=== PATIENT | female | born 1955 | race Caucasian/White ===

== ENCOUNTER 2022-12-23 09:30 | Outpatient (RCR) | payer MEDICARE, SELFPAY ==
--- NOTE | 2022-12-18 08:19 | HP.OTEVAL ---
Patient's Visit Information SUZY MANRIQUEZ is a 67 year old F, referred to Occupational Therapy by Rowdy Victoria PA-C, with a diagnosis of right unilateral primary OA of CMCJ. Date of Evaluation: 12/17/22 Occupational Therapist: Ivon Muller, FUAD/Dwight, CHT - Subjective This 67 year old female was seen for OT eval with dx with CMC. pt is right handed. 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 pt states she does like to read and will hold books until her thumb hurts. Pt states she has had x rays and she is bone on bone- Dr. would like to see if OT can make supportive custom orthosis to protect thumb and decrease pain. - Pain right hand 2 Pain Intensity Range: 5 - ROM Wrist: right 65/45 left 65/65 CMC: right 5 left 20 MP: right 40 left 60 IP: right 50 left 55 Radial Abduction: right 30 left 40 Opposition: Kapandji opposition scale right 5 left 10 ROM Comments: pt demo with hyper ext at MPJ bilaterally. 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 with ADLS by D/C. Goal:: pt will report pain no greater than 1/10 with use of orthosis by d/c Goal:: Pt will demo understanding of joint protection and ergonomics when performing BADLs and IADLs by d/c. Pt will demo understanding of adaptive Equipment use to decrease stress on joints to allow pt to perform BADSL and IADLS at EN level. Goal:: Pt will demo understanding of using supportive bracing 80% of workday/ADLS to decrease stress on tendon origin to allow healing and decrease pain by end of 2nd session. - Rehabilitation General Assessment: pt demo with painful right CMCJ due to OA deformity and causing instability. pt demo need skilled OT services 3-4 visits for custom orthosis fabrication to provide protection and support to CMCJ. Therapist ed. pt on some off the shelf CMC bracing with MP included, Joint protection sandra. and use of heat/ice depending on what feels better for her. Therapist will submit for approval for OT services and orthosis jarrell. once approved will bring pt in for orthosis jarrell. pt demo understanding and agrees to POC. Rehabilitation Potential: Good - Anticipated Interventions A/AAROM/PROM, Triggerpoint Release, Modalities, Orthoses, Fine Motor Coord/Manpreet, Home Program - Visit Plan Frequency: 1x/Week Duration: 2-4 Weeks General Plan: orthosis jarrell. custom. thumb stabilization. joint protection. Ad. eq. modalities as needed TEXT: Thank you for the opportunity to evaluate your patient. For Medicare and Medicare HMO plans, please review the plan of care and approve it. It will need to be FAXED BACK to us at [phone] for Medicare purposes. Please let me know if there are questions or concerns regarding this plan of care. Physician Signature: Date:
--- NOTE | 2023-04-09 09:50 | HP.OT.NRP ---
Patient Information Patient Information: SUZY MANRIQUEZ was seen in my office for initial evaluation on 12/17/22. The following Plan of Care was established for this patient: POC Established Initial Frequency: 1x/Week Initial Duration: 2-4 Weeks Anticipated Interventions Anticipated Interventions: A/AAROM/PROM, Triggerpoint Release, Modalities, Orthoses, Fine Motor Coord/Manpreet and Home Program Last Seen Last Seen: This patient was last seen in our office 12/23/22. Pertinent comments regarding their Occupational therapy will appear below: pt was seen for 2 OT session for Joint protection sandra. along with ed. on dx. At this time pt has not scheduled further apts and is d/c at this time. At this point I will be discontinuing this patient from occupational therapy. I would be happy to see this patient again in the future if found appropriate by the physician. Thank you! Ivon Muller, OTR/L, CHT
== END 2022-12-23 19:00 | disposition home or self-care (01) ==
LOC: OT 09:30
PROVIDERS: Referring Provider Physician Assistant Surgical; Visit Provider Physician Assistant Surgical
DX: M18.11 Unilateral primary osteoarthritis of first carpometacarpal joint, right hand (principal)
CPT/HCPCS: 97166; 97530

== ENCOUNTER → 2024-03-16 | Outpatient (CLI) | payer MEDICARE, SELFPAY ==
--- NOTE | 2024-03-16 | BRBX_PTH ---
PATIENT: SUZY MANRIQUEZ LOC: [facility] U#:[id number] AGE/SX: 68/F ROOM: RE03/16/[address]: Dr. Paola Castellanos MD : 1955 BED: DIS: 03/16/2024 SPEC #: [id number] RECD: 03/16/24 16:16 STATUS: ED CHI #: [id number] LALA: 03/16/24 00:[address]: Paola Castellanos DEPT: SURGICAL PATHOLOGY RECD BY: Adelaida Stewart ENTERED: 03/17/24 09:14 SP TYPE: BREAST BX OTHR DR: No Primary Care Phys Tissues: Right breast, NOS Procedures: Surgery Specimen Level IV HEADER OPERATION: Right breast biopsy PRE-OP DIAGNOSIS: Right breast TISSUE SUBMITTED: Right breast tissue, 3o'clock, 1.0cm from the nipple MICROSCOPIC DIAGNOSIS Right breast, 3 o'clock, 1.0cm from the nipple, core biopsy: Hyalinized fibroadenoma. Negative for atypia or malignancy. See comment. / 03/20/2024 COMMENT Correlation with clinical, radiologic findings and appropriate follow up are necessary. MICROSCOPIC DESCRIPTION Slides are reviewed. GROSS DESCRIPTION Received in fixative is one container labeled with the patient's name and designated Right breast. The specimen consists of multiple elongated fragments of sahu-yellow fibroadipose tissue that in aggregate measure 1.0 x 0.5 x 0.1 cm. The specimen is totally submitted in one cassette. YAYO/ 03/17/2024 TC:1 CPT:33499
== END | disposition home or self-care (01) ==
LOC: LABSPEC 16:15
PROVIDERS: Referring Provider Surgery; Visit Provider Surgery
DX: N64.9 Disorder of breast, unspecified (principal)
CPT/HCPCS: 88305

== ENCOUNTER 2024-10-10 12:14 | Outpatient (CLI) | payer MEDICARE, SELFPAY ==
--- NOTE | 2024-10-10 12:25 | US_ITS ---
EXAM: US BREAST BIOPSY 1ST LESION CLINICAL HISTORY: Abnormal mammogram. COMPARISON: None. TECHNIQUE: Under direct sonographic guidance, the surgeon performed core biopsies of a 6 mm x 6 mm x 4 mm hypoechoic nodule at the 10 o'clock position of the breast at 3 cm from the nipple. FINDINGS: Successful ultrasound-guided core biopsies of a 6 mm x 6 mm x 4 mm hypoechoic nodule at the 10 o'clock patient's breasts at 3 cm from the nipple. US/US Breast Biopsy 1st Lesion IMPRESSION: Successful ultrasound-guided breast biopsy. Reading Location: [facility]
--- NOTE | 2024-10-10 13:00 | BRBX_PTH ---
PATIENT: SUZY MANRIQUEZ LOC: [facility] U#:[id number] AGE/SX: 69/F ROOM: RE10/10/[address]: Dr. Paola Castellanos MD : 1955 BED: DIS: 10/10/2024 SPEC #: [id number] RECD: 10/10/24 13:26 STATUS: ED REEnriqueta #: [id number] LALA: 10/10/24 13:[address]: Paola Castellanos DEPT: SURGICAL PATHOLOGY RECD BY: Gill Pathak ENTERED: 10/11/24 08:42 SP TYPE: BREAST BX OTHR DR: Dr. Nahid Harris MD Tissues: Right breast, NOS Procedures: Surgery Specimen Level IV HEADER OPERATION: Right breast biopsy PRE-OP DIAGNOSIS: BIARD 4a TISSUE SUBMITTED: Right breast 10o'clock, 3cm from nipple Ischemic Time: 1 minute Fixation Time: 31 hours MICROSCOPIC DIAGNOSIS Right breast, 10o'clock, 3cm from nipple, core biopsy: Hyalinized fibroadenoma with focal fibrocystic changes. Negative for atypia or malignancy. See comment. 10/12/2024 COMMENT The specimen predominantly consists of blood clots. Correlation with clinical, radiologic findings and appropriate follow up are necessary. Please also make reference to previous specimen [id number], right breast, 3 o'clock, 1.0 cm from the nipple with diagnosis of hyalinized fibroadenoma. MICROSCOPIC DESCRIPTION Slides are reviewed. GROSS DESCRIPTION Received in fixative is one container labeled with the patient's name and designated Right breast. The specimen consists of multiple irregular fragments of blood clots mixed with a few fragments of sahu-yellow fibroadipose tissue that in aggregate measure 5 x 3 x 0.2 cm. The specimen is totally submitted in two cassettes. 10/11/2024 TC:1 CPT:21639
--- NOTE | 2024-10-10 13:29 | PCM.OPRPT ---
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 Risk benefits were discussed the patient and she elected to proceed with ultrasound guided core biopsy with clip placement Description of procedure: Patient was brought into the ultrasound room in the right breast was marked. A timeout was completed verifying correct patient, procedure, site, specially, prior to beginning procedure. The right breast was prepped and draped in usual sterile fashion and using local anesthesia was obtained with 1% lidocaine with epi. The lesion was located with the ultrasound. Small incision was made with 11 blade to introduced the mammotome through the skin. Under ultrasound guidance multiple core samples were obtained using then 13-gauge mammotome and sent in formalin for pathology. The BARD MaxCore dual ultraribbon clip was then deployed into the biopsy cavity under ultrasound guidance and a picture was taken. Upon completion procedure hemostasis was obtained and a Steri-Strip and OpSite were placed. Patient was then taken to the mammography suite for clip verification. The clip was verified. The patient tolerated the procedure well and was discharged from the breast imaging department good condition. Surgical Findings: See operative report Complications Complications: No
== END 2024-10-10 23:59 | disposition home or self-care (01) ==
PROVIDERS: PCP Internal Medicine; Referring Provider Surgery; Visit Provider Surgery
DX: N60.21 Fibroadenosis of right breast (principal)
CPT/HCPCS: 19083; 88305